=== PATIENT | female | born 1980 | race Caucasian/White ===

== ENCOUNTER 2019-05-29 11:39 | Day surgery (SDC) | payer OTHER ==
[~2019-05-29 11:39] MED LIST: Buffered Lidocaine 1% SYRIN* 1 ML/SYRINGE INTRADERM ONE; Lactated Ringers 1000 ML Bag* 1,000 ML IV SCH; Sodium Citrate/Citric Acid* 15 ML UDC PO ONE
[2019-05-29] MEDS ORDERED: Clindamycin 900 MG/D5W BAG(*) 900 MG/50 ML BAG IVPB ONE (12:30)
[2019-05-29] MEDS ORDERED: Sodium Citrate/Citric Acid* 15 ML UDC ONE (12:30)
[2019-05-29] MEDS ORDERED: Midazolam* 1 MG/ML 2 ML VIAL (2 MG) ONE (14:00)
[2019-05-29] MEDS ORDERED: fentaNYL* 50 MCG/ML 2 ML VIAL (100 MCG VIAL) ONE (14:00)
[2019-05-29] MEDS ORDERED: Lidocaine 2% PF * 5 ML VIAL ONE (14:01)
[2019-05-29] MEDS ORDERED: Propofol* 10 MG/ML 20 ML BTL ONE ×2 (14:01→15:27)
[2019-05-29] MEDS ORDERED: Bupivacaine 0.5%* 50 ML MDV VIAL ONE (14:47)
[2019-05-29] MEDS ORDERED: fentaNYL* 50 MCG/ML 2 ML VIAL (100 MCG VIAL) IV PRN (15:29)
[2019-05-29] MEDS ORDERED: Naloxone* 0.4 MG/ML 1 ML VIAL IV PRN (15:29)
[2019-05-29] MEDS ORDERED: Acetaminophen IV 1GM/100ML * 1,000 MG/100 ML VIAL IVPB ONE (15:29)
[2019-05-29] MEDS ORDERED: Ondansetron INJ* 2 MG/ML VIAL IV PRN (15:29)
[2019-05-29] MEDS ORDERED: Ketorolac INJ* 30 MG/ML 1 ML VIAL ONE (15:31)
--- NOTE | 2019-05-29 16:00 | OP ---
Operative Report - Blank - Operative Report Date of Operation: 05/29/19 Note: PATIENT: Khushi Araya DATE OF : 1980 DATE OF SURGERY: 05/29/2019 SURGEON: Norberto Martin MD STEAMER OPERATOR: OMERO Urbina, whos assistance was necessary for positioning, retraction, help with instrumentation, and closure. ANESTHESIOLOGIST: Dr. Lou PREOPERATIVE DIAGNOSIS: Left ankle synovitis, lateral impingement and ankle instability POSTOPERATIVE DIAGNOSIS: Left ankle synovitis, lateral impingement and ankle instability OPERATION: 1. Left ankle arthroscopy with extensive debridement. 2. Left ankle modified Brostrom procedure lateral ligament reconstruction. ANESTHESIA: General IMPLANTS: Arthrex fibertak suture anchor x2 TOURNIQUET TIME: Less than one hour with a well-padded thigh tourniquet at 250 mmHg. SPECIMENS: none ESTIMATED BLOOD LOSS: minimal COMPLICATIONS: none STATUS: Stable from the operating room to the recovery room and then home. INDICATIONS FOR PROCEDURE: Khushi has had persistent left lateral ankle pain and instability. Both operative and non operative treatment alternatives were reviewed. Further, the nature and risks of surgery were reviewed in careful detail, in the office as well as the pre-operative holding area. Our discussions regarding the risks of surgery included, but were not limited to, infection, wound problems, nerve injury, neuroma, RSD, persistent symptoms, blood clot, failure of the surgery, and even the remote chance of catastrophic complication. DESCRIPTION OF PROCEDURE: The patient was seen in the preoperative holding unit and informed written consent was obtained. The appropriate extremity was marked. The patient was then brought to the operating room and carefully positioned on the operating room table. Anesthesia was induced. All bony prominences were padded with great care. A well-padded thigh tourniquet was placed. A chlorhexidine based pre- scrub was performed followed by a chloraprep prep and drape in standard sterile fashion. A surgical safety pause was then conducted in which we confirmed the appropriate patient, extremity, planned procedure, availability of equipment, indication and administration of prophylactic antibiotics, and DVT prophylaxis in the form of a compression boot on the non-surgical extremity. An Esmarch exsanguination of the limb was performed and the tourniquet inflated. The leg was positioned in the noninvasive ankle arthroscopy leg bryant setup. I began by establishing the anteromedial portal. I utilized a spinal needle for this. Great care was taken to protect the superficial neurovascular structures. Under direct visualization, I then established an anterolateral portal. Great care was taken to protect the superficial peroneal nerve. I utilized the full radius shaver to remove a considerable amount of synovitis from the anterior and lateral aspects of the ankle joint. This was carefully removed to give a nice view of the ankle joint. The cartilage looked great. I then again utilized the full radius shaver to remove all additional debris from the ankle joint. I removed the arthroscopic equipment and closed the portals utilizing 3-0 nylon suture. I then made an approximately 8 cm incision overlying the distal fibula. This was made in line with the distal fibula and then curving anteriorly in line with the fourth ray. Dissection was carried down through the soft tissues. Superficial hemostasis was obtained. I dissected down to the lateral aspect of the fibula at the periosteal and ligamentous layer and then dissected anteriorly to expose the anterolateral ankle ligaments. We protected the superficial peroneal nerve at all times, which was not visualized within our field. Once we had adequately exposed a pocket anterior to the ligaments, we sharply took the ligaments down off of the anterior and distal aspect of the fibula using a 15 blade. The inferior extensor retinaculum was exposed and protected for subsequent repair later in the procedure. I then utilized a rongeur to make a trough along the fibula to receive the reconstructed ligaments. I then utilized two Arthrex fibertak suture anchors in the fibula for repair of the lateral ligaments utilizing a horizontal mattress suture. These sutures were all passed with great care taken to appropriately tension both the ATFL as well as the CFL in order to get a nice tight repair. We held the ankle in a dorsiflexed and everted position while the ligaments and sutures were tied down over the fibular bone bridges. These held the ankle in a much improved position with excellent tension on the ligaments. We further augmented the repair by bringing the inferior extensor retinaculum up to the fibula. There was a much improved anterior drawer at this point as compared to pre-operatively. The wound was copiously irrigated. At this point, a sterile dressing was applied and the ankle was splinted in a neutral position. The patient was then awakened from anesthesia and transferred to the recovery room in stable condition. There were no complications. All needle and sponge counts were correct at the end of the case. ATTESTATION: I attest I was present and scrubbed and performed the critical portions of the procedure myself. POSTOPERATIVE PLAN: The patient will remain nonweightbearing for an anticipated duration of six weeks. Follow up will be in two weeks for likely suture removal , Steri-Strip application and transition into a short leg cast.
[2019-05-29] MEDS ORDERED: Acetaminophen IV 1GM/100ML * 100 ML ONE (16:35)
[2019-05-29 17:14] VITALS: BP 114/77
== END 2019-05-29 17:05 | disposition home or self-care (01) ==
LOC: OR 11:39
PROVIDERS: ATTEND Orthopaedic Surgery
DX: M25.372 Other instability, left ankle (principal); M65.872 Other synovitis and tenosynovitis, left ankle and foot; M76.72 Peroneal tendinitis, left leg; Z86.711 Personal history of pulmonary embolism; J45.909 Unspecified asthma, uncomplicated; Z68.32 Body mass index [BMI] 32.0-32.9, adult
CPT/HCPCS: 81025; A9270-GY; C1713; J1885; J2250; J2704; J3010; J3490